=== PATIENT | female | born 1990 | race Caucasian/White ===

== ENCOUNTER 2016-10-18 20:02 | Inpatient (IN) | payer BC ==
[~2016-10-18] VITALS: Ht 160 cm; Wt 75.7 kg
[2016-10-18 20:15] VITALS: BP_SYST 145
--- NOTE | 2016-10-18 20:40 | NUR ---
Placed in room 05 . Placed on cardiac surgeon, blood pressure machine and pulse oximeter. To gown for exam. Side rails up. Report given to NABIL Han.
--- NOTE | 2016-10-18 20:52 | NUR ---
Patient to ER C/O severe 9/10 left flank pain for the past 3 days. patient states that she passes 2 other kidney stones in the last half year and this time she waited and tried home remedy but the pain is severe with nausea and vomiting today. States that she was seen at urgent care. AAOx4, unlabored breathing, no signs of acute dsitress.
--- NOTE | 2016-10-18 21:34 | NUR ---
ER MD Duarte at bedside evaluating the patient
[2016-10-18] MEDS ORDERED: NACL 0.9% 1,000 ML IV ONE (21:49)
--- NOTE | 2016-10-18 21:50 | NUR ---
Patient off the unit for CT scan via gurney
[2016-10-18] MEDS ORDERED: ONDANSETRON HCL 4 MG/2 ML VIAL IVP ONE (22:00)
[2016-10-18] MEDS ORDERED: DIPHENHYDRAMINE INJ 50 MG/ML VIAL IVP ONE (22:00)
[2016-10-18] MEDS ORDERED: MORPHINE 4 MG/ML INJ. SYRINGE IVP ONE (22:00)
--- NOTE | 2016-10-18 22:05 | NUR ---
# 20 gauge angiocath placed to left ac. Use of asceptic technique. Opsite placed over site. Blood return noted. Blood for lab drawn from site. Flushed with 10 cc of normal saline. No evidence of infiltration noted. Patient tolerated well.
[2016-10-18 23:00] LABS: BASOPHILS % (AUTO) 0.1 % (0.0-2.0); EOSINOPHILS # (AUTO) 0.1 K/uL (0.0-0.4); EOSINOPHILS % (AUTO) 0.3 % (0.0-4.0); HEMATOCRIT 37.8 % (36-48); HEMOGLOBIN 12.9 g/dL (12.0-16.0); LYMPHOCYTES # (AUTO) 1.7 K/uL (1.0-5.5); LYMPHOCYTES % (AUTO) 9.1 % (20.5-51.5); MEAN CORPUSCULAR HEMOGLOBIN 28 pg (27-31); MEAN CORPUSCULAR HGB CONC 34 % (32-36); MEAN CORPUSCULAR VOLUME 82 fL (79.0-98.0); MONOCYTES # (AUTO) 0.8 K/uL (0.0-1.0); MONOCYTES % (AUTO) 4.4 % (1.7-9.3); NEUTROPHILS # (AUTO) 15.9 K/uL (1.8-7.7); NEUTROPHILS % (AUTO) 86.1 % (40.0-70.0); PLATELET COUNT (AUTO) 375 K/uL (130-430); RED BLOOD CELL COUNT(AUTO) 4.65 MIL/uL (4.2-6.2); RED CELL DISTRIBUTION WIDTH 12.6 % (9.0-15.0); WHITE BLOOD COUNT (AUTO) 18.5 K/uL (4.8-10.8)
[2016-10-18] MEDS ORDERED: HYDROmorphone 1 MG INJ. 1 MG/ML AMPUL IVP ONE (23:15)
[2016-10-18 23:17] LABS: BILIRUBIN,URINE NEGATIVE (NEGATIVE); BLOOD, URINE 1+ (NEGATIVE); CLARITY/URINE HAZY (CLEAR); COLOR,URINE YELLOW (YELLOW); GLUCOSE,URINE NEGATIVE (NEGATIVE); KETONES,URINE NEGATIVE (NEGATIVE); LEUKOCYTE ESTERASE ,URINE 2+ (NEGATIVE); NITRITE, URINE NEGATIVE (NEGATIVE); PH,URINE 5.5 (5.0-8.0); PROTEIN URINE NEGATIVE (NEGATIVE); UROBILINOGEN,URINE 0.2 (0.2-1.0)
[2016-10-18 23:18] LABS: CALCIUM 9.1 mg/dL (8.4-11.0); CREATININE 1.12 mg/dL (0.55-1.30); POTASSIUM 3.8 mmol/L (3.5-5.1)
[2016-10-18 23:23] LABS: BACTERIA,URINE MODERATE /HPF (None Seen); MUCUS,URINE None Seen /LPF (None Seen)
[2016-10-18] MEDS ORDERED: THYR15TA PO (23:37)
[2016-10-18] MEDS ORDERED: LEVO25TA7 PO (23:37)
--- NOTE | 2016-10-18 23:37 | NUR ---
Medication reconciliation completed with information provided by patient. Any prior medication reconciliation on file was reviewed and corrected.
[2016-10-18] MEDS ORDERED: cefTRIAXone 1 GM IVPB PREMIX 50 ML IV ONE (23:45)
[2016-10-19] VITALS (7 sets, daily range): BP systolic 115–136
--- NOTE | 2016-10-19 00:09 | NUR ---
Patient will be admitted to care of DR SMITH. Admitted to [facility] IN unit. Will go to room 108C. Belongings list completed. Summary report printed. Report given to NABIL.
--- NOTE | 2016-10-19 00:23 | NUR ---
Transfer to [facility] / [facility]. IV present no sign or symptom of infiltration.
[2016-10-19] MEDS ORDERED: MORPHINE 4 MG/ML INJ. SYRINGE IVP PRN (00:30)
--- NOTE | 2016-10-19 00:47 | NUR ---
ADMISSION NOTE Received patient from ER via gurney. Patient admitted with diagnosis of kidney stones. Patient is awake, alert, oriented X 4. Patient oriented to hospital room, call light, toileting, pain management and safety-teach back done. Patient informed that Ivan will be her nurse and that their room number is 108a. Personal belongings checked and Belongings List documented. Call light within reach.
--- NOTE | 2016-10-19 01:00 | NUR ---
Initial note A/O x 3, no SOB, no chest pain, c/o mild pain 4/10 at L flank/kidney after Dilaudid given in ER. Skin warm to touch, IV SL at L AC #20. Patent, free of infection or infiltration. Clear lung sounds with active bowel sounds. Last BM was 10/18/2016 about 3-4 pm per patient. No diet change. Call light within reach, instructed patient to call for bathroom or other concern. Will continue to monitor patient.
[2016-10-19] MEDS: NACL 0.9% 1,000 ML IV SCH (01:23)
--- NOTE | 2016-10-19 01:37 | NUR ---
PAGED PAGED [facility] AT [phone] DIRECTLY CONNECTED TO ,
--- NOTE | 2016-10-19 01:40 | NUR ---
Paged Dr. Silva regarding patient pain management and reactions (hives) to Morphine Dr. Silva DC Morphine and ordered Dilaudid 2 mg IVP Q4H PRN for severe pain and Tylenol 650 mg PO Q6H PRN for mild pain and fever. Patient is aware of the new order.
[2016-10-19] MEDS ORDERED: HYDROmorphone 2 MG/ML VIAL IVP PRN ×3 (01:45→12:15)
--- NOTE | 2016-10-19 02:00 | NUR ---
Rounds Resting in bed. No SOB, no chest pain, still some pain at L flank/kidney. Patient is aware that next Dilaudid will be around 4 am if needed. IV at L AC, patent, continued IVF. Call light within reach, will continue to monitor patient.
--- NOTE | 2016-10-19 04:00 | NUR ---
Rounds Sleeping, no SOB, no chest pain, no grimacing. IV at L AC, patent, continued IVF. Call light within reach, will continue to monitor patient.
[2016-10-19] MEDS: ACETAMINOPHEN 325 MG TABLET PO PRN (05:38)
[2016-10-19] MEDS: ONDANSETRON HCL 4 MG/2 ML VIAL IVP PRN ×2 (06:35→10:46)
[2016-10-19 06:41] LABS: BASOPHILS % (AUTO) 0.1 % (0.0-2.0); EOSINOPHILS # (AUTO) 0.2 K/uL (0.0-0.4); EOSINOPHILS % (AUTO) 1.2 % (0.0-4.0); HEMATOCRIT 33.5 % (36-48); HEMOGLOBIN 11.6 g/dL (12.0-16.0); LYMPHOCYTES # (AUTO) 2.9 K/uL (1.0-5.5); LYMPHOCYTES % (AUTO) 17.8 % (20.5-51.5); MEAN CORPUSCULAR HEMOGLOBIN 29 pg (27-31); MEAN CORPUSCULAR HGB CONC 35 % (32-36); MEAN CORPUSCULAR VOLUME 84 fL (79.0-98.0); MONOCYTES # (AUTO) 1.2 K/uL (0.0-1.0); MONOCYTES % (AUTO) 7.4 % (1.7-9.3); NEUTROPHILS # (AUTO) 11.8 K/uL (1.8-7.7); NEUTROPHILS % (AUTO) 73.5 % (40.0-70.0); PLATELET COUNT (AUTO) 269 K/uL (130-430); RED BLOOD CELL COUNT(AUTO) 4.01 MIL/uL (4.2-6.2); RED CELL DISTRIBUTION WIDTH 12.9 % (9.0-15.0); WHITE BLOOD COUNT (AUTO) 16.1 K/uL (4.8-10.8)
--- NOTE | 2016-10-19 06:45 | NUR ---
Closing note A/O x 3, no SOB, no chest pain, Tylenol given for L flank pain. Patient stated pain level about the same, but she refused to take Dilaudid yet. Zofran given. IV at L AC, patent, continued IVF. Call light within reach, will give report to incoming nurse.
[2016-10-19 06:56] LABS: ALBUMIN 3.3 g/dL (3.4-4.8); CREATININE 1.44 mg/dL (0.55-1.30); TOTAL BILIRUBIN 0.7 mg/dL (0.0-1.0)
--- NOTE | 2016-10-19 08:00 | NUR ---
Opening Note: Received report from night nurse. Patient is resting comfortably in bed. No s/s of distress or SOB. Patient is alert and oriented, able to express needs, and ask for assistance. Vital signs wnl, assessment complete. No complaints of pain at this moment. Patient stated that she did not want the IV fluids running anymore. Patient educated on use of IV fluids to maintain hydration, patient verbalized understanding but still refused them. Explained to patient to drink plenty of fluids/water during the day. Call light in reach, bed in lowest position, and will continue to monitor.
[2016-10-19] MEDS: LEVOTHYROXINE SODIUM 0.025 MG TABLET PO SCH (08:47)
[2016-10-19] MEDS: THYROID 30 MG TABLET PO SCH (08:47)
--- NOTE | 2016-10-19 09:16 | NUR ---
Urology consult Spoke to Tiffany
--- NOTE | 2016-10-19 10:00 | NUR ---
Note: Patient is resting comfortably in bed. No s/s of distress or sob. Patient is alert and oriented, able to express needs, and ask for assistance. Patient is vomiting and c/o of nausea. PRN medications to be given. Call light in reach, bed in lowest position, and will continue to monitor.
[2016-10-19] MEDS ORDERED: IOHEXOL 0 ML IV ONE (11:23)
[2016-10-19] MEDS ORDERED: PROPOFOL 200MG/ 20ML VIAL (DIPRIVAN) IV ONE (11:25)
[2016-10-19] MEDS ORDERED: DEXAMETHASONE SOD PHOSPHATE 4 MG/ML VIAL IVP ONE (11:25)
[2016-10-19] MEDS ORDERED: ROCURONIUM BROMIDE 10 MG/ML (ZEMURON) IV ONE (11:25)
[2016-10-19] MEDS ORDERED: KETOROLAC TROMETHAMINE 30 MG VIAL IVP ONE (11:25)
[2016-10-19] MEDS ORDERED: LR 1,000 ML IV.SOLN IV ONE (11:25)
[2016-10-19] MEDS ORDERED: METOCLOPRAMIDE HCL 10 MG/2 ML VIAL IVP ONE (11:25)
[2016-10-19] MEDS ORDERED: SEVOFLURANE 15 MIN GAS INH ONE (11:25)
[2016-10-19] MEDS ORDERED: fentaNYL CITRATE 250 MCG/5 ML AMP IV ONE (11:25)
[2016-10-19] MEDS ORDERED: ONDANSETRON HCL 4 MG/2 ML VIAL IVP ONE (11:25)
[2016-10-19] MEDS ORDERED: MIDAZOLAM HCL 5 MG/5 ML VIAL IVP ONE (11:25)
[2016-10-19] MEDS ORDERED: NS IRRIG SOLN 5000 ML IR ONE (11:25)
[2016-10-19] MEDS ORDERED: LR 1,000 ML IV SCH (12:12)
[2016-10-19] MEDS ORDERED: MEPERIDINE HCL/PF 25 MG/ML DISP.SYRIN IVP PRN (12:15)
[2016-10-19] MEDS ORDERED: HYDROmorphone 1 MG INJ. 1 MG/ML AMPUL IVP PRN (12:15)
--- NOTE | 2016-10-19 12:45 | NUR ---
Note: Patient is back from surgery. Vital signs wnl. No s/s of distress or sob. Patient is alert and oriented, able to express needs, and ask for assistance. Call light in reach, bed in lowest position, and will continue to monitor.
--- NOTE | 2016-10-19 14:00 | NUR ---
Note: Patient is resting comfortably in bed. No s/s of distress or sob. Patient is alert and oriented, able to express needs, and ask for assistance. at bedside. Call light in reach, bed in lowest position, and will continue to monitor.
--- NOTE | 2016-10-19 15:00 | NUR ---
Incentive Spirometer Patient given incentive spirometer and educated on use and importance of it. Patient verbalized understanding and return demonstration showed accurate use and understanding.
--- NOTE | 2016-10-19 16:00 | NUR ---
Note: Patient is resting comfortably in bed. No s/s of distress or sob. Patient is alert and oriented, able to express needs, and ask for assistance. Call light in reach, bed in lowest position, and will continue to monitor.
--- NOTE | 2016-10-19 18:30 | NUR ---
CLOSING NOTE: PATIENT IS RESTING COMFORTABLY IN BED. NO S/S OF DISTRESS OR SOB. PATIENT IS ALERT AND ORIENTED, ABLE TO EXPRESS NEEDS, AND ASK FOR ASSISTANCE. CALL LIGHT IN REACH, BED IN LOWEST POSITION, AND WILL GIVE REPORT TO NIGHT NURSE.
--- NOTE | 2016-10-19 20:00 | NUR ---
Initial note A/O x 3, no SOB, no chest pain, denied pain, denied N/V. Patient only had about 25% taken from dinner and stated her will bring some food for him. Skin warm to touch, IV at L AC, patent and free of infection or infiltration. Ambulatory. SCD in place. Patient is able to inhale about 1500 ml IS. Call light within reach, will continue to monitor patient.
--- NOTE | 2016-10-19 22:00 | NUR ---
Rounds Resting in bed, talking with at bedside. No SOB, no chest pain, denied pain, denied N/V. Ambulatory. SCD in place. Call light and IS within reach, patient stated she knows to use IS 10 times/hr while she is awake, will continue to monitor patient.
[2016-10-20 00:26] VITALS: BP_SYST 129
--- NOTE | 2016-10-20 00:30 | NUR ---
Rounds Resting in bed, awake. No SOB, no chest pain, denied pain, denied N/V. Rocephin IV infusing. Ambulatory. SCD in place. Call light and IS within reach, will continue to monitor patient.
[2016-10-20] MEDS ORDERED: cefTRIAXone 1 GM IVPB PREMIX 50 ML IV SCH (01:00)
[2016-10-20] MEDS: NACL 0.9% 1,000 ML IV SCH ×3 (01:27→16:02)
--- NOTE | 2016-10-20 02:00 | NUR ---
Rounds Resting/sleeping in bed, awake. No SOB, no chest pain, denied pain, denied N/V. Ambulatory. SCD in place. Call light and IS within reach, will continue to monitor patient.
--- NOTE | 2016-10-20 04:00 | NUR ---
Rounds Sleeping in bed, arousable. No SOB, no chest pain, denied pain, denied N/V. Patient stated she went to bathroom for urination a while ago. SCD in place. Call light and IS within reach, will continue to monitor patient.
[2016-10-20 04:04] VITALS: BP_SYST 120
[2016-10-20] MEDS: ACETAMINOPHEN 325 MG TABLET PO PRN ×3 (05:56→21:54)
--- NOTE | 2016-10-20 06:00 | NUR ---
Rounds Awake, resting in bed. No SOB, no chest pain, c/o lower back pain 3/10, Tylenol given. Patient stated she went to bathroom quite often over the night due to IVF. She refused to have IVF for 1 hour. Explained the importance of IVF, patient understood but insisted to be free of IVF for [address] Call light and IS within reach, will continue to monitor patient.
--- NOTE | 2016-10-20 06:55 | NUR ---
Closing note Awake, resting in bed. No SOB, no chest pain, pain decreased after Tylenol given. She still refused to have IVF at this time and stated to start IVF infusion when shift change. Explained the importance of IVF, patient understood. SCD in place. Call light and IS within reach, will give report to incoming nurse.
[2016-10-20 07:31] LABS: BASOPHILS % (AUTO) 0.1 % (0.0-2.0); EOSINOPHILS % (AUTO) 0.1 % (0.0-4.0); HEMATOCRIT 35.8 % (36-48); HEMOGLOBIN 12.3 g/dL (12.0-16.0); LYMPHOCYTES # (AUTO) 1.3 K/uL (1.0-5.5); LYMPHOCYTES % (AUTO) 7.1 % (20.5-51.5); MEAN CORPUSCULAR HEMOGLOBIN 29 pg (27-31); MEAN CORPUSCULAR HGB CONC 34 % (32-36); MEAN CORPUSCULAR VOLUME 84 fL (79.0-98.0); MONOCYTES # (AUTO) 0.7 K/uL (0.0-1.0); MONOCYTES % (AUTO) 3.7 % (1.7-9.3); NEUTROPHILS # (AUTO) 16.4 K/uL (1.8-7.7); PLATELET COUNT (AUTO) 301 K/uL (130-430); RED BLOOD CELL COUNT(AUTO) 4.25 MIL/uL (4.2-6.2); RED CELL DISTRIBUTION WIDTH 12.6 % (9.0-15.0); WHITE BLOOD COUNT (AUTO) 18.4 K/uL (4.8-10.8)
[2016-10-20 07:48] LABS: CALCIUM 8.6 mg/dL (8.4-11.0); CREATININE 0.93 mg/dL (0.55-1.30); PHOSPHORUS 3.2 mg/dL (2.7-4.5); POTASSIUM 3.7 mmol/L (3.5-5.1)
--- NOTE | 2016-10-20 08:00 | NUR ---
INITIAL NOTE PT SITTING UP IN BED, AWAKE, ALERT AND ORIENTED X4, NO S/S OF DISTRESS OR COMPLAINT OF PAIN, IV TO LAC INTACT AND PATENT INFUSING FLUIDS AT ORDERED RATE, NO S/S OF INFILTRATION NOTED, SCDS IN PLACE, PT REORIENTED TO USE OF CALL LIGHT AND IT IS PLACED WITHIN REACH, SAFETY MEASURES IN PLACE, BED IN LOW POSITION AND LOCKED, SIDE RAILS UP X2, WILL CONTINUE TO MONITOR.
[2016-10-20 08:10] VITALS: BP_SYST 127
--- NOTE | 2016-10-20 09:15 | NUR ---
DR SMITH MAKING ROUNDS
--- NOTE | 2016-10-20 10:00 | NUR ---
AM MEDICATIONS ADMINISTERED AM MEDICATIONS AT 10AM PER PATIENT REQUEST, AT BEDSIDE. PT STATES SHE NOTED HER FACE AND CHEST ARE A BIT FLUSHED, TEMP. 97.8, NO S/S OF CHILLS, OT ITCHING, WILL CONTINUE TO MONITOR. PT STATES SHE HAS NO OTHER NEEDS AT THIS TIME, WILL FOLLOW UP. CALL LIGHT WITHIN REACH.
[2016-10-20] MEDS: LEVOTHYROXINE SODIUM 0.025 MG TABLET PO SCH (10:06)
[2016-10-20] MEDS: THYROID 30 MG TABLET PO SCH (10:06)
[2016-10-20] MEDS ORDERED: LEVOFLOXACIN 500 MG/D5W 100 ML PIGGYBACK IV ONE (11:25)
[2016-10-20 12:00] VITALS: BP_SYST 117
--- NOTE | 2016-10-20 12:00 | NUR ---
PATIENT SITTING UP IN BED, FAMILY AT BEDSIDE, NO S/S OF DISTRESS OR COMPLAINT OF PAIN AT THIS TIME, VSS, PT STATES SHE HAS NO NEEDS AT THIS TIME, WILL FOLLOW UP.
--- NOTE | 2016-10-20 14:00 | NUR ---
ROUNDS PT LAYING IN SIDE, WATCHING HER COMPUTER, NO S/S OF DISTRESS OR COMPLAINT OF PAIN AT THIS TIME, SAFETY MEASURES IN PLACE, CALL LIGHT WITHIN REACH, BED IN LOW POSITION AND LOCKED, WILL FOLLOW UP
--- NOTE | 2016-10-20 16:00 | NUR ---
PAIN MANAGEMENT PATIENT COMPLAINING OF BACK PAIN 09/21 AND REQUESTING TYLENOL, PAIN MEDICATION ADMINISTERED, PT TOLERATING WELL, WILL FOLLOW UP
--- NOTE | 2016-10-20 17:30 | NUR ---
PATIENT COMPLAINS OF FEELING DISCOMFORT TO HER LOWER ABDOMEN, PT ENCOURAGED TO WALK AROUND UNIT AND CHANGE POSITION, MAYBE GAS OR CRAMPING, PT NOT ACCUSTOMED TO BEING LAYING DOWN FOR SUCH LONG PERIODS OF TIME, PT VERBALIZED UNDERSTANDING, WILL FOLLOW UP
[2016-10-20 18:05] VITALS: BP_SYST 128
--- NOTE | 2016-10-20 18:44 | NUR ---
CLOSING NOTE PT LAYING IN BED, COMPLAINS OF BACK PAIN, TYLENOL WAS PREVIOUSLY GIVEN, OFFERED TO CALL MD AND REQUEST SOMETHING STRONGER, PT STATES PERHAPS HER BACK IS JUST BOTHERING HER BECAUSE SHE HAS BEEN IN SAME POSITION FOR A LONG PERIOD OF TIME, SHE WILL TRY WALKING AROUND, WILL ENDORSE PAIN MANAGEMENT TO FOLLOWING SHIFT. IV TO LAC INTACT INFUSING FLUIDS AT ORDERED RATE, NO S/S OF INFILTRATION NOTED, ALL NEEDS MET DURING SHIFT. SAFETY MEASURES IN PLACE, CALL LIGHT WITHIN REACH, WILL ENDORSE CARE TO FOLLOWING SHIFT.
[2016-10-20 19:25] VITALS: BP_SYST 136
--- NOTE | 2016-10-20 19:25 | NUR ---
INITIAL NOTES; -Pt is a/ox4, standing near the bed. Vital signs 98.1, 20, 136/88, 92,k2cyb=28% r/a. Pt is c/o aching abdominal site, 4 out 10. Informed pt that will page MD. Iv sites of left a/c patent, no s/s any infiltration noted. IVF NS @ 80ml/hr. Abdomen soft & nondistended, bs present. Erick pedis present upon palp. Lung sounds clear all lobes. Encouraged to use incentive spirometry 10x/hr while awakes, pt verbalized understanding. Pt stated,'' I had been using it 10x while awake.'' Discussed poc,all safety measures, pain mgmt with pt, verbalized understanding. Side rail x3, bed low position. All safety measures in place. Call light /win reach. Continue to monitor pt.
--- NOTE | 2016-10-20 19:31 | NUR ---
Paged paged for Dr Silva, dialed . picked up call himself.
--- NOTE | 2016-10-20 19:59 | NUR ---
REFUSED STRONG PAIN MEDICATION THIS TIME. -INFORMED PT THAT SPOKE WITH MD REGARDING ABDOMINAL PAIN ACHING SPREAD DOWN 4 OUT 10. NO FURTHER ORDER -ASKED PT IF WANT TO RECEIVE DILAUDID, PT REFUSED DILAUDID FOR PAIN MED THIS TIME. INFORMED IF CHANGE HER MIND, USE CALL LIGHT TO INFORM NURSE FOR STRONG PAIN MEDICATION, PT VERBALIZED UNDERSTANDING. CALL LIGHT W/IN REACH. VISITOR IS AT BEDSIDE.
[2016-10-20] MEDS: LACTOBACILLUS RHAMNOSUS GG 1 CAP CAPSULE PO SCH (21:14)
--- NOTE | 2016-10-20 21:54 | NUR ---
PAIN ADMINISTERED -Pt is c/o abdominal pain aching, gave Tylenol 650mg po. See EMAR pain assessment. Visitor is at bedside. Call light w/in reach. Continue to monitor pt.
[2016-10-21 00:11] VITALS: BP_SYST 119
--- NOTE | 2016-10-21 00:17 | NUR ---
ROUNDS; -Pt is resting. No s/s any chest pain,pain,sob,or any acute distress noted. Iv sites of left a/c patent, no s/s any infiltration noted. IVF NS @ 80ml/hr. Side rail x3, bed low position. All safety measures in place. Call light /win reach. Continue to monitor pt.
[2016-10-21] MEDS: NACL 0.9% 1,000 ML IV SCH (02:30)
[2016-10-21 05:02] VITALS: BP_SYST 128
[2016-10-21] MEDS: ACETAMINOPHEN 325 MG TABLET PO PRN ×2 (05:58→09:40)
--- NOTE | 2016-10-21 05:58 | NUR ---
PAIN ADMINISTERED -Pt is c/o abdominal pain aching, gave Tylenol 650mg po. See EMAR pain assessment. Call light w/in reach. Continue to monitor pt.
--- NOTE | 2016-10-21 06:39 | NUR ---
CLOSING NOTES; -Pt is resting in bed. No s/s any pain,sob,or any acute distress this time. Iv sites of left a/c patent, no s/s any infiltration noted. IVF NS @ 80ml/hr. Side rail x3, bed low position. All safety measures in place. Call light /win reach. Will endorse to oncoming nurse to continue care.
--- NOTE | 2016-10-21 07:20 | NUR ---
Initial rounds: pt on bed awake, alert and oriented. I.V. access patent. Discussed plan of care. Call light within reach. Report received at bedside.
[2016-10-21 07:23] LABS: BASOPHILS % (AUTO) 0.2 % (0.0-2.0); EOSINOPHILS # (AUTO) 0.1 K/uL (0.0-0.4); EOSINOPHILS % (AUTO) 0.5 % (0.0-4.0); HEMATOCRIT 33.3 % (36-48); HEMOGLOBIN 11.4 g/dL (12.0-16.0); LYMPHOCYTES # (AUTO) 4.1 K/uL (1.0-5.5); LYMPHOCYTES % (AUTO) 27.7 % (20.5-51.5); MEAN CORPUSCULAR HEMOGLOBIN 29 pg (27-31); MEAN CORPUSCULAR HGB CONC 34 % (32-36); MEAN CORPUSCULAR VOLUME 84 fL (79.0-98.0); MONOCYTES % (AUTO) 6.5 % (1.7-9.3); NEUTROPHILS # (AUTO) 9.6 K/uL (1.8-7.7); NEUTROPHILS % (AUTO) 65.1 % (40.0-70.0); PLATELET COUNT (AUTO) 303 K/uL (130-430); RED BLOOD CELL COUNT(AUTO) 3.97 MIL/uL (4.2-6.2); RED CELL DISTRIBUTION WIDTH 13.2 % (9.0-15.0); WHITE BLOOD COUNT (AUTO) 14.8 K/uL (4.8-10.8)
[2016-10-21 07:26] LABS: CALCIUM 8.3 mg/dL (8.4-11.0); CREATININE 0.94 mg/dL (0.55-1.30); POTASSIUM 3.5 mmol/L (3.5-5.1)
[2016-10-21 08:00] VITALS: BP_SYST 150
--- NOTE | 2016-10-21 09:00 | NUR ---
Latoya rounds: Dr. Silva seen the pt with discharge order.
[2016-10-21] MEDS ORDERED: HYDR-4100 PO (09:33)
[2016-10-21] MEDS ORDERED: CIPR-211 PO (09:34)
[2016-10-21] MEDS: LACTOBACILLUS RHAMNOSUS GG 1 CAP CAPSULE PO SCH (09:35)
[2016-10-21] MEDS: LEVOTHYROXINE SODIUM 0.025 MG TABLET PO SCH (09:35)
[2016-10-21] MEDS: THYROID 30 MG TABLET PO SCH (09:40)
--- NOTE | 2016-10-21 09:56 | NUR ---
Prescription for Mazama and Cipro given to patient.
--- NOTE | 2016-10-21 10:00 | NUR ---
rounds: i.v. antibiotic last dose administered. pt with family at bedside.
[2016-10-21 10:17] VITALS: BP_SYST 140
[2016-10-21 10:30] VITALS: BP_SYST 140
--- NOTE | 2016-10-21 11:45 | NUR ---
D/C Patient Patient given medication reconciliation form and D/C instructions. Exit Care provided. Patient verbalized understanding. MD discussed with patient the results and treatment provided. Ambulatory with steady gait for discharge to home. Patient in stable condition, ID band removed. IV catheter removed, intact and dressing applied, no active bleeding. Rx norco given. Patient educated on pain management. All belongings sent with patient.
== END 2016-10-21 11:45 | disposition home or self-care (01) | DRG 872 ==
LOC: SED 20:02 → SMU 10-19 00:30
PROVIDERS: ADMIT General Practice; ATTEND General Practice
PROC: 0T778DZ Dilation of Left Ureter with Intraluminal Device, Via Natural or Artificial Opening Endoscopic (ICD-10-PCS; principal; 2016-10-19 10:45)
DX: A41.9 Sepsis, unspecified organism (principal); N39.0 Urinary tract infection, site not specified; E44.0 Moderate protein-calorie malnutrition; N20.2 Calculus of kidney with calculus of ureter; N19 Unspecified kidney failure; E66.9 Obesity, unspecified; E03.9 Hypothyroidism, unspecified; J45.909 Unspecified asthma, uncomplicated; Z68.29 Body mass index [BMI] 29.0-29.9, adult; Z88.5 Allergy status to narcotic agent; Z79.899 Other long term (current) drug therapy; Z84.1 Family history of disorders of kidney and ureter
CPT/HCPCS: 36415; 76000; 80048; 80053; 81000-TC; 83605; 83735-TC; 84100-TC; 85025; 87040-TC; 87081; 87086; 87186-TC; C1769; C2625; J0696; J1100; J1170; J1200; J1885; J1956; J2250; J2270; J2405; J2704; J2765; J3010; J7030; J7120; Q9967